=== PATIENT | female | born 1945 | race Caucasian/White ===

== ENCOUNTER → 2023-06-02 15:45 | Outpatient (REF) | payer MEDICARE, SELFPAY | LOC: WDC 15:45 | PROVIDERS: ATTENDING PHYSICIAN Nurse Practitioner Adult Health; FAMILY PHYSICIAN Family Medicine | DX: Z12.31 Encounter for screening mammogram for malignant neoplasm of breast (principal) | CPT/HCPCS: 77063; 77067 ==

== ENCOUNTER → 2023-10-30 15:01 | Outpatient (REF) | payer MEDICARE, SELFPAY ==
[2023-10-30 16:44] LABS: Blood Urea Nitrogen 16 mg/dl (7-17); Calcium 9.5 mg/dl (8.4-10.2); Carbon Dioxide 29 mmol/L (22-30); Chloride 98 mmol/L (98-107); Glucose 97 mg/dl (70-99); Potassium 4.1 mmol/L (3.5-5.1); Sodium 137 mmol/L (135-145); eGFR > 60.00
== END ==
LOC: REG 15:01
PROVIDERS: ATTENDING PHYSICIAN Physician Assistant Medical; FAMILY PHYSICIAN Family Medicine
DX: K11.7 Disturbances of salivary secretion (principal)
CPT/HCPCS: 36415; 80048

== ENCOUNTER → 2023-11-04 12:27 | Outpatient (REF) | payer MEDICARE, SELFPAY | LOC: RAD 12:27 | PROVIDERS: ATTENDING PHYSICIAN Physician Assistant Medical; FAMILY PHYSICIAN Family Medicine | DX: K11.7 Disturbances of salivary secretion (principal) | CPT/HCPCS: 70491; Q9967 ==

== ENCOUNTER → 2023-12-08 15:39 | Outpatient (REF) | payer MEDICARE, SELFPAY ==
[2023-12-08 16:46] LABS: C-Reactive Protein < 5.00 mg/L (0.0-10.00)
[2023-12-08 18:31] LABS: Erythrocyte Sed Rate 24 mm/hour (0-20)
[2023-12-11 09:08] LABS: SSA 52 (Ro)(ENA) Ab, IgG 2 AU/mL (0-40); SSA 60 (Ro)(ENA) Ab, IgG 0 AU/mL (0-40); SSB (La)(ENA) Ab, IgG 0 AU/mL (0-40)
== END ==
LOC: REG 15:39
PROVIDERS: ATTENDING PHYSICIAN Otolaryngology; FAMILY PHYSICIAN Family Medicine
DX: K11.6 Mucocele of salivary gland (principal)
CPT/HCPCS: 36415; 85652; 86038; 86140; 86235

== ENCOUNTER → 2024-07-20 15:58 | Outpatient (REF) | payer MEDICARE, SELFPAY | LOC: WDC 15:58 | PROVIDERS: ATTENDING PHYSICIAN Family Medicine | DX: Z12.31 Encounter for screening mammogram for malignant neoplasm of breast (principal) | CPT/HCPCS: 77063; 77067 ==